=== PATIENT | female | born 1995 | race African-American/Black ===

== ENCOUNTER → 2024-02-17 12:10 | Outpatient (CLI) | payer OTHER, SELFPAY ==
[2024-02-17 13:16] LABS: Add Manual Diff / Slide Review NO; Basophils Absolute Auto 0 /uL (0-100); Basophils Percent Auto 0.3 % (0-2); Eosinophils Absolute Auto 300 /uL (0-450); Eosinophils Percent Auto 2.8 % (2-4); Hematocrit 37.2 % (36-46); Hemoglobin 12.8 g/dL (12.0-16.0); Lymphocytes Absolute Auto 2500 /uL (1100-4500); Lymphocytes Percent Auto 23.7 % (25-40); Mean Corpuscular HGB Conc 34.3 % (30-36); Mean Corpuscular Hemoglobin 31.1 PG (26-34); Mean Corpuscular Volume 90.6 fL (80-100); Monocytes Absolute Auto 700 /uL (0-900); Monocytes Percent Auto 6.5 % (3-14); Neutrophils Absolute Auto 7000 /uL (1500-7000); Neutrophils Percent Auto 66.7 % (50-75); Platelet Count 297 X10^3/uL (150-400); Red Blood Cell Count 4.11 X10^6/uL (4.0-5.2); Red Cell Distribution Width 13.5 % (11.6-14.8); White Blood Cell Count 10.5 X10^3/uL (4.5-11.0)
[2024-02-17 13:33] LABS: Natera Collection Specimen Collected
[2024-02-17 13:53] LABS: Hemoglobin A1C% w Est Avg Glu 4.8 % (4.0-6.0)
[2024-02-18 04:51] LABS: RPR Screen Non Reactive (Non Reactive)
[2024-02-18 08:15] LABS: Varicella IgG Antibody <135 index (Immune >165)
[2024-02-20 15:30] LABS: Hepatitis B Surface Antigen NEGATIVE s/c (NEGATIVE); Rubella Antibody IgG 10.4 IU/mL (>15)
[2024-02-20 15:46] LABS: HIV 1 & 2 Ab/Ag 4th Gen Combo NEGATIVE (NEGATIVE); Hep C Virus Ab w/Reflex Quant NEGATIVE s/c (NEGATIVE)
[2024-02-21 13:15] LABS: QuantiFERON Mitogen Value >10.00 IU/mL (.); QuantiFERON Nil Value 0.06 IU/mL (.); QuantiFERON TB Gold Plus Negative (Negative); QuantiFERON TB1 Ag Value 0.06 IU/mL (.); QuantiFERON TB2 Ag Value 0.03 IU/mL (.)
== END ==
PROVIDERS: Referring Provider Obstetrics & Gynecology; Visit Provider Obstetrics & Gynecology
DX: Z34.02 Encounter for supervision of normal first pregnancy, second trimester (principal); Z22.7 Latent tuberculosis
CPT/HCPCS: 36415; 80055; 83036; 86480; 86787; 86803; 86850; 86900; 86901; 87389

== ENCOUNTER → 2024-04-11 09:15 | Outpatient (CLI) | payer OTHER, SELFPAY | PROVIDERS: Visit Provider Obstetrics & Gynecology | DX: R31.9 Hematuria, unspecified (principal) | CPT/HCPCS: 87086 ==

== ENCOUNTER → 2024-04-11 09:41 | Outpatient (CLI) | payer OTHER, SELFPAY ==
[2024-04-19 11:11] LABS: Gest Age on Col Date 18.7 weeks (.); Gestational Age EDD (.); Insulin Dep Diabetes No (.); OSBR Risk 1IN 10000 (.); Results Report (.); Test Results *Screen Negative* (.)
== END ==
PROVIDERS: Referring Provider Obstetrics & Gynecology; Visit Provider Obstetrics & Gynecology
DX: O99.891 Other specified diseases and conditions complicating pregnancy (principal); R31.9 Hematuria, unspecified
CPT/HCPCS: 36415; 82105; 87086

== ENCOUNTER → 2024-04-19 15:19 | Outpatient (CLI) | payer OTHER, SELFPAY ==
--- NOTE | 2024-04-19 15:20 | DI.US.S_ITS ---
PROCEDURE: US OB >= 14 WEEKS FETUS INDICATIONS: anatomy scan OUTSIDE/PRIOR DATING DATA: Last menstrual period (LMP): December 02, 2023. LMP-based estimated date of delivery (ARABELLA): September 07, 2024. The calculations are made using the sonographic ARABELLA of August 31, 2024 TECHNIQUE: Real-time scanning was performed of the fetus, with image documentation and biometric measurements. Endovaginal scanning: Not performed COMPARISON: None. FINDINGS: General: A single living intrauterine gestation is present. Presentation: Variable Placenta: Placental position is posterior , without previa. Amniotic fluid index: 16.0 cm, normal range is 5-24 cm. Single deepest vertical pocket is 5.8 cm. heart rate: 150 beats per minute. Maternal cervical canal: 4.3 cm long. Normal lower limit is 2.5 cm. Report any funneling of internal cervical os: % of canal length, shape (U or V), width or any U-shaped funneling. biometrics: Biparietal diameter: 5.0 cm, 21 weeks and 0 days Head circumference: 18.3 cm, 20 weeks and 5 days Abdominal circumference: 16.1 cm, 21 weeks and 1 day Femur length: 3.4 cm, 20 weeks and 5 days Clinically estimated gestational age: 19 weeks and 6 days Composite gestational age from present scan: 20 weeks and 6 a days Estimated weight and percentile: 386 g, approximately the 95th percentile for gestational age Anatomic survey: Neuro: Ventricles are non-dilated at less than 10 mm. Cisterna magna is normal at 3-11 mm. Cerebellum is normal in size and morphology. Nuchal skin fold: Nuchal skin full not well visualized secondary to positioning. Face: Nose and lips, facial profile are normal. Spine: spine not well visualized secondary to positioning Heart: Cardiac structures not well visualized secondary to positioning. Diaphragm: Diaphragm is intact. Stomach: Left-sided stomach is present. Kidneys: No hydronephrosis. Normal is less than 5 mm in 2nd trimester, less than 7 mm in 3rd trimester. Cord: 3-vessel cord has orthotopic insertion. Bladder: Normal in size. Extremities: All 4 extremities identified. IMPRESSION: Single living intrauterine gestation with estimated sonographic gestational age of approximately 20 weeks and 6 days versus approximately 19 weeks and 6 days based off last menstrual period. Normal interval growth has occurred. Estimated weight of approximately 386 g which correlates with the 95th percentile for gestational age. The spine, cardiac structures, and nuchal skin fold were not well visualized secondary to positioning during this examination. Follow-up recommended. We strive to produce accurate, complete, and clear reports of imaging services. To assist us in improving patient care, this report was composed using standard report templates and voice recognition software. Therefore, it may contain abnormal punctuation, insertions and/or omissions. Occasional wrong-word or sound-alike substitutions may occur. Though we review the report and make efforts to correct it, we do recommend that the report be read carefully in proper context to recognize any text inaccuracies. Dictated by: Wander Brennan M.D. on 04/19/2024 at 19:56 Approved by: Wander Brennan M.D. on 04/19/2024 at 20:01
== END ==
PROVIDERS: Referring Provider Obstetrics & Gynecology; Visit Provider Obstetrics & Gynecology
DX: Z34.82 Encounter for supervision of other normal pregnancy, second trimester (principal); Z3A.20 20 weeks gestation of pregnancy
CPT/HCPCS: 76811

== ENCOUNTER → 2024-05-16 16:49 | Outpatient (CLI) | payer OTHER, SELFPAY ==
--- NOTE | 2024-05-16 16:50 | DI.US.S_ITS ---
PROCEDURE: US OB FOLLOW UP INDICATIONS: incomplete views at time of anatomy scan OUTSIDE/PRIOR DATING DATA: Last menstrual period (LMP): 12/02/23. LMP-based estimated date of delivery (ARABELLA): 09/07/24. First dating scan (date and location): Not available. Estimated date of delivery (ARABELLA) from first dating scan: Not available. The calculations are made using the working ARABELLA of 08/31/24. TECHNIQUE: Real-time scanning was performed of the fetus, with image documentation. Endovaginal scanning: Not performed COMPARISON: None. FINDINGS: A single living intrauterine gestation is present. Presentation: Vertex. Placenta: Placental position is posterior, without previa. Amniotic fluid index: 16.3 cm, normal range is 5-24 cm. Single deepest vertical pocket is 4.4 cm. heart rate: 147 beats per minute. Maternal cervical canal: Closed and 5.8 cm long. Normal lower limit is 2.5 cm. Clinically estimated gestational age: 23 weeks five days There was visualization of normal spine components, skin covering spine, four chambered heart, and cardiac ventricular outflow tracts. Nuchal fold thickness is not a valid measurement after 21 weeks. IMPRESSION: Single living intrauterine . Completion of anatomic survey with normal structures visualized. Dictated by: Stefanie Epps M.D. on 05/17/2024 at 12:03 Approved by: Stefanie Epps M.D. on 05/17/2024 at 12:07
== END ==
PROVIDERS: Referring Provider Obstetrics & Gynecology; Visit Provider Obstetrics & Gynecology
DX: Z34.82 Encounter for supervision of other normal pregnancy, second trimester (principal); Z3A.23 23 weeks gestation of pregnancy
CPT/HCPCS: 76816

== ENCOUNTER → 2024-06-06 13:16 | Outpatient (CLI) | payer OTHER, SELFPAY ==
[2024-06-06 15:34] LABS: Hematocrit 32.4 % (36-46); Hemoglobin 10.8 g/dL (12.0-16.0)
[2024-06-06 16:15] LABS: GTT (PREG) 1 Hour PP 50gm Dose 139 mg/dL (76-139)
== END ==
PROVIDERS: Referring Provider Obstetrics & Gynecology; Visit Provider Obstetrics & Gynecology
DX: Z34.82 Encounter for supervision of other normal pregnancy, second trimester (principal)
CPT/HCPCS: 36415; 82950; 85014; 85018

== ENCOUNTER → 2024-07-06 11:22 | Outpatient (CLI) | payer OTHER, SELFPAY ==
[2024-07-06 12:04] LABS: Add Manual Diff / Slide Review NO; Basophils Absolute Auto 0 /uL (0-100); Basophils Percent Auto 0.3 % (0-2); Eosinophils Absolute Auto 300 /uL (0-450); Eosinophils Percent Auto 2.6 % (2-4); Hematocrit 33.3 % (36-46); Hemoglobin 11.3 g/dL (12.0-16.0); Lymphocytes Absolute Auto 2200 /uL (1100-4500); Lymphocytes Percent Auto 18.5 % (25-40); Mean Corpuscular HGB Conc 33.9 % (30-36); Mean Corpuscular Volume 91.4 fL (80-100); Monocytes Absolute Auto 1000 /uL (0-900); Monocytes Percent Auto 8.7 % (3-14); Neutrophils Absolute Auto 8300 /uL (1500-7000); Neutrophils Percent Auto 69.9 % (50-75); Platelet Count 204 X10^3/uL (150-400); Red Blood Cell Count 3.64 X10^6/uL (4.0-5.2); Red Cell Distribution Width 13.9 % (11.6-14.8); White Blood Cell Count 11.8 X10^3/uL (4.5-11.0)
[2024-07-06 12:18] LABS: Hemoglobin A1C% w Est Avg Glu 4.7 % (4.0-6.0)
[2024-07-06 12:33] LABS: Alanine Aminotransferase 22 IU/L (<35); Albumin 3.4 g/dL (3.5-5.0); Albumin Globulin Ratio 1.2 (1.0-2.8); Alkaline Phosphatase 83 U/L (38-126); Aspartate Aminotransferase 24 IU/L (14-36); Bilirubin Total 0.5 mg/dL (0.2-1.3); Calcium 8.5 mg/dL (8.4-10.2); Carbon Dioxide 18 mmol/L (22-32); Chloride 109 mmol/L (98-107); Estimated Glomerular Filt Rate > 60 mL/min (>60); Globulin 2.8 g/dL (1.7-4.1); Glucose 62 mg/dL (70-100); HEMOLYSIS 17 (0-50); Potassium 3.9 mmol/L (3.4-5.1); Sodium 134 mmol/L (137-145); Total Protein 6.2 g/dL (6.3-8.2)
[2024-07-06 12:37] LABS: BUN Creatinine Ratio 4.8 (6-22); Blood Urea Nitrogen 2 mg/dL (7-17)
== END ==
PROVIDERS: Referring Provider Obstetrics & Gynecology; Visit Provider Obstetrics & Gynecology
DX: O36.60X0 Maternal care for excessive fetal growth, unspecified trimester, not applicable or unspecified (principal)
CPT/HCPCS: 36415; 80053; 83036; 85025

== ENCOUNTER → 2024-07-12 06:46 | Outpatient (CLI) | payer OTHER, SELFPAY ==
--- NOTE | 2024-07-12 06:47 | DI.US.S_ITS ---
PROCEDURE: US OB LIMITED INDICATIONS: interval growth, size > dates, borderline high 1h OGTT OUTSIDE/PRIOR DATING DATA: Last menstrual period (LMP): 12/02/2023. LMP-based estimated date of delivery (ARABELLA): 09/07/2024. The calculations are made using the clinical ARABELLA of 09/07/2024. TECHNIQUE: Real-time scanning was performed of the fetus, with biometry and image documentation. Endovaginal scanning: Not performed COMPARISON: [facility], OB FOLLOW UP, 05/16/2024, 17:07. FINDINGS: A single living intrauterine gestation is present. Presentation: Vertex. Placenta: Placental position is posterior, without previa. Amniotic fluid index: 11.5 cm, normal range is 5-24 cm. Single deepest vertical pocket is 3.9 cm. heart rate: 139 beats per minute. Maternal cervical canal: 5.4 cm long. Normal lower limit is 2.5 cm. Biometric measurements: BPD: 8.4 cm, 33 weeks 5 days HC: 30.5 cm, 33 weeks 6 days AC: 28.0 cm, 32 weeks 0 days FL: 6.4 cm, 33 weeks 0 days Clinically estimated gestational age: 31 weeks 6 days Estimated gestational age from today: 33 weeks 1 day. Estimated weight 2014 g, 64th percentile Stomach/abdomen, kidneys, cord insertion are thin normal limits. The urinary bladder is not well seen. IMPRESSION: 1. Springer living intrauterine at 33 weeks 1 day based on today's ultrasound. This is concordant with prior dating +/-3 weeks. Fetus is in the 64th percentile for weight. Estimated weight 2014 g. 2. Normal placenta and amniotic fluid. Dictated by: Michael Shaw M.D. on 07/12/2024 at 22:21 Approved by: Michael Shaw M.D. on 07/12/2024 at 22:29
== END ==
PROVIDERS: Referring Provider Obstetrics & Gynecology; Visit Provider Obstetrics & Gynecology
DX: O36.63X0 Maternal care for excessive fetal growth, third trimester, not applicable or unspecified (principal); Z3A.33 33 weeks gestation of pregnancy
CPT/HCPCS: 76815

== ENCOUNTER 2024-07-24 16:00 | Outpatient (CLI) | payer OTHER, SELFPAY ==
[2024-07-24 16:59] LABS: Alanine Aminotransferase 17 IU/L (<35); Albumin 3.9 g/dL (3.5-5.0); Albumin Globulin Ratio 1.2 (1.0-2.8); Alkaline Phosphatase 98 U/L (38-126); Aspartate Aminotransferase 27 IU/L (14-36); BUN Creatinine Ratio 9.5 (6-22); Bilirubin Total 0.4 mg/dL (0.2-1.3); Blood Urea Nitrogen 4 mg/dL (7-17); Calcium 9.2 mg/dL (8.4-10.2); Carbon Dioxide 17 mmol/L (22-32); Chloride 109 mmol/L (98-107); Estimated Glomerular Filt Rate > 60 mL/min (>60); Globulin 3.2 g/dL (1.7-4.1); Glucose 71 mg/dL (70-100); HEMOLYSIS < 15 (0-50); Potassium 3.9 mmol/L (3.4-5.1); Sodium 135 mmol/L (137-145); Total Protein 7.1 g/dL (6.3-8.2)
[2024-07-24 17:06] LABS: Add Manual Diff / Slide Review NO; Basophils Absolute Auto 0 /uL (0-100); Basophils Percent Auto 0.2 % (0-2); Eosinophils Absolute Auto 300 /uL (0-450); Eosinophils Percent Auto 2.5 % (2-4); Hematocrit 34.2 % (36-46); Hemoglobin 11.5 g/dL (12.0-16.0); Lymphocytes Absolute Auto 2400 /uL (1100-4500); Lymphocytes Percent Auto 20.9 % (25-40); Mean Corpuscular HGB Conc 33.6 % (30-36); Mean Corpuscular Hemoglobin 30.9 PG (26-34); Mean Corpuscular Volume 91.9 fL (80-100); Monocytes Absolute Auto 1200 /uL (0-900); Monocytes Percent Auto 10.1 % (3-14); Neutrophils Absolute Auto 7700 /uL (1500-7000); Neutrophils Percent Auto 66.3 % (50-75); Platelet Count 205 X10^3/uL (150-400); Red Blood Cell Count 3.73 X10^6/uL (4.0-5.2); Red Cell Distribution Width 14.1 % (11.6-14.8); White Blood Cell Count 11.7 X10^3/uL (4.5-11.0)
[2024-07-24 17:12] LABS: Creatinine Urine Random 24.17 mg/dL; Protein (Total) Urine Random 22 mg/dL (0-12); Protein Creatinine Ratio Urine 0.91 GRAM/24H
--- NOTE | 2024-07-24 17:24 | PM.OBTRLD ---
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 Surgical History [place] teeth extracted Hx of tonsillectomy Family History (Updated 02/13/24 @ 08:10 by Cara Zambrano RN) Mother Diabetes mellitus Hypertension Grandmother Diabetes mellitus Hypertension Grandmother Heart disease Hyperthyroidism Heart attack Social History marital status: number of children: 1 household members: spouse and children lives independently: Yes caregiver/support person: Yes housing: apartment pets and animals: No education level: college (Bachelor's degree) 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 jasper needs: No travel history: recent ([place]) seatbelt use: always helmet use: No water heater temp set < 120 deg: Yes working smoke detector in home: Yes fire extinguisher in home: Yes carbon monox detector in home: Yes firearms in home: No do you feel safe at home: Yes Smoking Status: Never smoker second hand exposure: No alcohol intake: former (~3-4/week on weekends when not ) during the past year weight has: remained stable well-balanced diet: daily or most days daily servings fruits/ve or more times/day caffeine: Yes (occasional AM coffee) Type(s) of exercise: walking frequency: 5-6 times per week duration: 30-45 minutes/day Review of Systems Review of Systems ROS: Yes All systems reviewed with the patient and are negative except as otherwise documented Objective Labs 07/24/24 16:20 07/24/24 16:20 Labs: Laboratory Results - last 24 hr 07/24/24 07/24/24 16:10 16:20 WBC 11.7 H RBC 3.73 L Hgb 11.5 L Hct 34.2 L MCV 91.9 MCH 30.9 MCHC 33.6 RDW 14.1 Plt Count 205 Neut % (Auto) 66.3 Lymph % (Auto) 20.9 L [place] % (Auto) 10.1 Eos % (Auto) 2.5 Baso % (Auto) 0.2 Neut # (Auto) 7700 H Lymph # (Auto) 2400 [place] # (Auto) 1200 H Eos # (Auto) 300 Baso # (Auto) 0 Sodium 135 L Potassium 3.9 Chloride 109 H Carbon Dioxide 17 L BUN 4 L Creatinine 0.42 L Estimated GFR > 60 BUN/Creatinine Ratio 9.5 Glucose 71 Calcium 9.2 Total Bilirubin 0.4 AST 27 ALT 17 Alkaline Phosphatase 98 Total Protein 7.1 Albumin 3.9 Globulin 3.2 Albumin/Globulin Ratio 1.2 U Random Total Protein 22 H Urine Creatinine 24.17 Protein/Creatinin Ratio 0.91 Evaluation Evaluation Baseline heart rate: 125 Variability: Moderate (11-25) monitor accelerations: Present Monitor Decelerations: Absent Category of Tracing: Reactive Status: Category l Diagnosis, Plan/Disposition Plan/Disposition Plan: 29yo at 33w4d sent to L&D after new mild range BP noted at time of routine PNC Non-sustained mild range BP repeat PIH labs wnl, Pr/Cr did not result until pt had been cleared for discharge however noted new increase to 0.91 (previously 0.16) message sent to staff to notify patient of need for 24h urine collection, pending and will follow RTC 1wk as scheduled routine PNC OB Disposition: home
== END 2024-07-24 17:10 | disposition home or self-care (01) ==
LOC: OB 07-30 06:35
PROVIDERS: Referring Provider Obstetrics & Gynecology; Visit Provider Obstetrics & Gynecology
DX: O26.893 Other specified pregnancy related conditions, third trimester (principal); R03.0 Elevated blood-pressure reading, without diagnosis of hypertension; Z3A.33 33 weeks gestation of pregnancy
CPT/HCPCS: 59025; 80053; 82570; 84156; 85025; G0378; G0379

== ENCOUNTER → 2024-07-27 07:51 | Outpatient (CLI) | payer OTHER, SELFPAY ==
[2024-07-27 08:47] LABS: Collection Time Urine 24 Hours; Protein (Total) Urine Random 17 mg/dL (0-12); Total Protein 24 Hour Urine 570 mg/day (42-225); Total Volume Urine 3350 mL
== END ==
PROVIDERS: Referring Provider Obstetrics & Gynecology; Visit Provider Obstetrics & Gynecology
DX: R77.9 Abnormality of plasma protein, unspecified (principal); R79.89 Other specified abnormal findings of blood chemistry; Z34.90 Encounter for supervision of normal pregnancy, unspecified, unspecified trimester
CPT/HCPCS: 84156

== ENCOUNTER 2024-07-27 16:11 | Observation (INO) | payer OTHER, SELFPAY | END 2024-07-27 18:15 | disposition home or self-care (01) | LOC: LABOR 16:12 | PROVIDERS: Admitting Provider Obstetrics & Gynecology; Referring Provider Obstetrics & Gynecology; Visit Provider Obstetrics & Gynecology | DX: Z34.83 Encounter for supervision of other normal pregnancy, third trimester (principal); R77.9 Abnormality of plasma protein, unspecified; R79.89 Other specified abnormal findings of blood chemistry; Z3A.34 34 weeks gestation of pregnancy | CPT/HCPCS: 59025; 59050; 84156; G0378; G0379 ==

== ENCOUNTER 2024-08-10 13:40 | Observation (INO) | payer OTHER, SELFPAY ==
[2024-08-10 14:34] LABS: Add Manual Diff / Slide Review NO; Basophils Absolute Auto 0 /uL (0-100); Basophils Percent Auto 0.2 % (0-2); Eosinophils Absolute Auto 200 /uL (0-450); Eosinophils Percent Auto 1.3 % (2-4); Hematocrit 36.5 % (36-46); Hemoglobin 12.3 g/dL (12.0-16.0); Lymphocytes Absolute Auto 2100 /uL (1100-4500); Lymphocytes Percent Auto 16.9 % (25-40); Mean Corpuscular HGB Conc 33.6 % (30-36); Mean Corpuscular Hemoglobin 30.8 PG (26-34); Mean Corpuscular Volume 91.9 fL (80-100); Monocytes Absolute Auto 800 /uL (0-900); Monocytes Percent Auto 6.2 % (3-14); Neutrophils Absolute Auto 9200 /uL (1500-7000); Neutrophils Percent Auto 75.4 % (50-75); Platelet Count 194 X10^3/uL (150-400); Red Blood Cell Count 3.98 X10^6/uL (4.0-5.2); Red Cell Distribution Width 14.3 % (11.6-14.8); White Blood Cell Count 12.2 X10^3/uL (4.5-11.0)
[2024-08-10 14:38] LABS: Alanine Aminotransferase 21 IU/L (<35); Albumin 3.9 g/dL (3.5-5.0); Albumin Globulin Ratio 1.1 (1.0-2.8); Alkaline Phosphatase 122 U/L (38-126); Aspartate Aminotransferase 31 IU/L (14-36); BUN Creatinine Ratio 8.2 (6-22); Bilirubin Total 0.4 mg/dL (0.2-1.3); Blood Urea Nitrogen 4 mg/dL (7-17); Calcium 9.5 mg/dL (8.4-10.2); Carbon Dioxide 19 mmol/L (22-32); Chloride 107 mmol/L (98-107); Estimated Glomerular Filt Rate > 60 mL/min (>60); Globulin 3.5 g/dL (1.7-4.1); Glucose 146 mg/dL (70-100); HEMOLYSIS < 15 (0-50); Potassium 3.8 mmol/L (3.4-5.1); Sodium 136 mmol/L (137-145); Total Protein 7.4 g/dL (6.3-8.2)
[2024-08-10 14:52] LABS: Ur Creatinine Normal (Normal); Ur Specific Gravity Normal (Normal); Urine Cocaine Negative (Negative); Urine Tetrahydrocannabinol Negative (Negative); Urine pH Normal (Normal)
[2024-08-10 14:53] LABS: UR Morphine/Opiate cutoff 300 Negative (Negative); Urine Amphetamines Negative (Negative); Urine Barbiturates Negative (Negative); Urine Benzodiazepines Negative (Negative); Urine MDMA Negative (Negative); Urine Methadone Negative (Negative); Urine Methamphetamines Negative (Negative); Urine Oxycodone Negative (Negative); Urine Phencyclidine Negative (Negative); Urine Tricyclic Antidepressant Negative (Negative)
[2024-08-10 15:58] LABS: Strep Grp B PCR NEG for Grp B Strep
--- NOTE | 2024-08-10 17:13 | P.TNLD_ITS ---
Visit Information Visit Information Date of evaluation: 08/10/24 Primary OB Provider: Elizabeth Rucker On-call OB Provider: Rodo Ng Reason for Evaluation: Yes non-stress test and Yes other Comments/Additional reasons for admission: Hollie is a 29 yo , ARABELLA 09/07/2024 currently at 36+ 0 weeks gestational age presenting to the [facility] with marked blood pressure elevation on her routine OB visit earlier today. Initial blood pressure in the office today was 202/90 and a repeat blood pressure by the attending price accuracy supervisor, Dr. Elizabeth Rucker, was also elevated in the severe range at 180/95. Dip urine was not performed but patient previously has been found to have greater than 500 mg of protein on 24 hour urine collection therefore would meet the diagnosis of preeclampsia. Patient is sent to the Center for repeat labs and prolonged monitoring. Patient has pedal edema which resolves overnight with elevation. She has chronic intermittent headaches which are essentially unchanged from how they have been through the course of this . She denies visual changes, or right upper quadrant pain. She does not have facial edema. 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 Surgical History [place] teeth extracted Hx of tonsillectomy Family History (Updated 02/13/24 @ 08:10 by Cara Zambrano RN) Mother Diabetes mellitus Hypertension Grandmother Diabetes mellitus Hypertension Grandmother Heart disease Hyperthyroidism Heart attack Social History marital status: number of children: 1 household members: spouse and children lives independently: Yes caregiver/support person: Yes housing: apartment pets and animals: No education level: college (Bachelor's degree) 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 jasper needs: No travel history: recent ([place]) seatbelt use: always helmet use: No water heater temp set < 120 deg: Yes working smoke detector in home: Yes fire extinguisher in home: Yes carbon monox detector in home: Yes firearms in home: No do you feel safe at home: Yes Smoking Status: Never smoker second hand exposure: No alcohol intake: former (~3-4/week on weekends when not ) during the past year weight has: remained stable well-balanced diet: daily or most days daily servings fruits/ve or more times/day caffeine: Yes (occasional AM coffee) Type(s) of exercise: walking frequency: 5-6 times per week duration: 30-45 minutes/day Review of Systems Review of Systems Narrative: Problem-specific ROS positives included in HPI Exam Const General: cooperative and comfortable Nutritional Appearance: well nourished Orientation: alert and oriented x3 HENMT Head: normal to inspection, normocephalic and atraumatic Ears: hearing grossly normal bilaterally Teeth and gingiva: dentition normal Eyes General: appearance normal, both eyes and all related structures Conjunctivae: conjunctivae normal Sclera: sclerae normal EOM: EOM intact bilaterally Neck Neck: normal visual inspection Resp Effort & Inspection: normal respiratory effort and able to speak in complete sentences GI Inspection: normal to inspection Palpation: soft, no hepatosplenomegaly and No tender (No RLQ tenderness) External Female Exam: other (SVE deferred) Uterus Location (Fundal Height): 36 Presentation: vertex Skin General: no rashes or lesions noted Neuro General: patient alert, patient awake, patient oriented x3 and no focal motor deficits Cognition: normal cognition Speech: speech normal DTR's: Rt Patellar: 0 and Lt Patellar: 0 Extrem General: normal to inspection Right lower extremity: normal to inspection and edema Details: non-pitting and 1+ Left lower extremity: normal to inspection and edema Details: non-pitting and 1+ Psych Appearance: grossly normal Mental Status: mental status grossly normal Speech and Movement: speech and movement normal Mood: congruent mood Affect: normal affect Attitude: cooperative Thought Process: normal Thought Content: normal Judgment: judgment good Objective Labs 08/10/24 13:55 08/10/24 13:55 Labs: Laboratory Results - last 24 hr 08/10/24 08/10/24 08/10/24 13:45 13:55 14:05 WBC 12.2 H RBC 3.98 L Hgb 12.3 Hct 36.5 MCV 91.9 MCH 30.8 MCHC 33.6 RDW 14.3 Plt Count 194 Neut % (Auto) 75.4 H Lymph % (Auto) 16.9 L [place] % (Auto) 6.2 Eos % (Auto) 1.3 L Baso % (Auto) 0.2 Neut # (Auto) 9200 H Lymph # (Auto) 2100 [place] # (Auto) 800 Eos # (Auto) 200 Baso # (Auto) 0 Sodium 136 L Potassium 3.8 Chloride 107 Carbon Dioxide 19 L BUN 4 L Creatinine 0.49 L Estimated GFR > 60 BUN/Creatinine Ratio 8.2 Glucose 146 H Calcium 9.5 Total Bilirubin 0.4 AST 31 ALT 21 Alkaline Phosphatase 122 Total Protein 7.4 Albumin 3.9 Globulin 3.5 Albumin/Globulin Ratio 1.1 U Opiates 300ng/mL cut Negative Ur Oxycodone Screen Negative Urine Methadone Screen Negative Ur Barbiturates Screen Negative U Tricyclic Antidepress Negative Ur Phencyclidine Scrn Negative Ur Amphetamines Screen Negative U Methamphetamines Scrn Negative Ur MDMA Scrn (Ecstasy) Negative U Benzodiazepines Scrn Negative Urine Cocaine Screen Negative U Marijuana (THC) Screen Negative Urine pH Normal Urine Specific [place] Normal Ur Creatinine Normal Group B Strep (PCR) Neg for grp b strep Diagnosis, Plan/Disposition Final Diagnosis (1) Preeclampsia: Status: Acute (2) : Status: Acute Plan/Disposition Plan: We had an extended discussion about preeclampsia as well as evaluation and management of preeclampsia both with and without severe features. Her marked blood pressure elevation in the office is deeply concerning and that concern was expressed to the patient and her family. That said, with bedrest and close observation, her blood pressure has normalized and given the option of continued observation overnight or discharge to home with close observation at home, the patient would prefer the latter. Accordingly, will let the patient go home tonight with her assurance that she will remain at bedrest and check her blood pressures at least 4 times daily going forward with the intention of notifying her provider and/or the center if she has a blood pressure at the 150/90 range or higher. She understands that she needs to be closely observe it for a significant change in her headaches, visual changes, or right upper quadrant pain. In addition she will return on 08/13/2024 for nonstress test and repeat labs. She is also scheduled for follow-up ultrasound on 08/13/2024. We also discussed induction of labor at 37-38 weeks due to preeclampsia or sooner if she manifests severe features. OB Disposition: home
== END 2024-08-10 17:12 | disposition home or self-care (01) ==
PROVIDERS: Admitting Provider Obstetrics & Gynecology; Referring Provider Obstetrics & Gynecology; Visit Provider Obstetrics & Gynecology
DX: O14.03 Mild to moderate pre-eclampsia, third trimester (principal); Z3A.36 36 weeks gestation of pregnancy
CPT/HCPCS: 59025; 59050; 80053; 80305; 85025; 87653; G0378; G0379

== ENCOUNTER → 2024-08-13 07:03 | Outpatient (CLI) | payer OTHER, SELFPAY ==
--- NOTE | 2024-08-13 07:04 | DI.US.S_ITS ---
PROCEDURE: US OB LIMITED INDICATIONS: ASSESS GROWTH,BELEN OUTSIDE/PRIOR DATING DATA: Last menstrual period (LMP): 12/02/2023 LMP-based estimated date of delivery (ARABELLA): 09/07/2024 The calculations are made using the working ARABELLA of 182 TECHNIQUE: Real-time scanning was performed of the fetus, with image documentation and biometric measurements. Endovaginal scanning: Not performed COMPARISON: [facility], OB LIMITED, 07/12/2024, 7:09. FINDINGS: General: A single living intrauterine gestation is present. Presentation: Vertex Placenta: Placental position is posterior fundal, without previa. Amniotic fluid index: 9.4 cm, normal range is 5-24 cm. Single deepest vertical pocket is 2.7 cm. heart rate: 144 beats per minute. Maternal cervical canal: Not well seen. biometrics: Biparietal diameter: 9.2 cm, 37 weeks, 1 day. Head circumference: 33.0 cm, 37 weeks, 3 days. Abdominal circumference: 31.7 cm, 37 weeks, 5 days. Femur length: 7.4 cm, 37 weeks, 5 days. Clinically estimated gestational age: 36 weeks, 3 days. Composite gestational age from present scan: 37 weeks, 0 day. Estimated weight and percentile: 2970 g, 57% IMPRESSION: 1. Single live intrauterine gestation with fetus in vertex presentation. heart rate is 144 beats per minute. Normal BELEN at at 9.4 cm. 2. Estimated weight is at 57% and is within normal limits. We strive to produce accurate, complete, and clear reports of imaging services. To assist us in improving patient care, this report was composed using standard report templates and voice recognition software. Therefore, it may contain abnormal punctuation, insertions and/or omissions. Occasional wrong-word or sound-alike substitutions may occur. Though we review the report and make efforts to correct it, we do recommend that the report be read carefully in proper context to recognize any text inaccuracies. Dictated by: Nain Marte M.D. on 08/13/2024 at 14:22 Approved by: Nain Marte M.D. on 08/13/2024 at 14:26
== END ==
LOC: US 07:04
PROVIDERS: Referring Provider Obstetrics & Gynecology; Visit Provider Obstetrics & Gynecology
DX: O36.63X0 Maternal care for excessive fetal growth, third trimester, not applicable or unspecified (principal); Z3A.37 37 weeks gestation of pregnancy
CPT/HCPCS: 76815

== ENCOUNTER 2024-08-13 08:05 | Observation (INO) | payer OTHER, SELFPAY ==
[2024-08-13 09:07] LABS: Add Manual Diff / Slide Review NO; Basophils Absolute Auto 0 /uL (0-100); Basophils Percent Auto 0.1 % (0-2); Eosinophils Absolute Auto 100 /uL (0-450); Eosinophils Percent Auto 1.2 % (2-4); Hematocrit 33.7 % (36-46); Hemoglobin 11.6 g/dL (12.0-16.0); Lymphocytes Absolute Auto 1800 /uL (1100-4500); Lymphocytes Percent Auto 17.1 % (25-40); Mean Corpuscular HGB Conc 34.4 % (30-36); Mean Corpuscular Hemoglobin 31.1 PG (26-34); Mean Corpuscular Volume 90.2 fL (80-100); Monocytes Absolute Auto 900 /uL (0-900); Monocytes Percent Auto 8.3 % (3-14); Neutrophils Absolute Auto 7600 /uL (1500-7000); Neutrophils Percent Auto 73.3 % (50-75); Platelet Count 181 X10^3/uL (150-400); Red Blood Cell Count 3.73 X10^6/uL (4.0-5.2); Red Cell Distribution Width 14.3 % (11.6-14.8); White Blood Cell Count 10.4 X10^3/uL (4.5-11.0)
[2024-08-13 09:15] LABS: Alanine Aminotransferase 20 IU/L (<35); Albumin 3.5 g/dL (3.5-5.0); Albumin Globulin Ratio 1.1 (1.0-2.8); Alkaline Phosphatase 107 U/L (38-126); Aspartate Aminotransferase 20 IU/L (14-36); Bilirubin Total 0.5 mg/dL (0.2-1.3); Carbon Dioxide 20 mmol/L (22-32); Chloride 107 mmol/L (98-107); Estimated Glomerular Filt Rate > 60 mL/min (>60); Globulin 3.1 g/dL (1.7-4.1); Glucose 101 mg/dL (70-100); HEMOLYSIS < 15 (0-50); Potassium 3.9 mmol/L (3.4-5.1); Sodium 134 mmol/L (137-145); Total Protein 6.6 g/dL (6.3-8.2)
[2024-08-13 09:17] LABS: Blood Urea Nitrogen 2 mg/dL (7-17)
--- NOTE | 2024-08-13 09:26 | P.TNLD_ITS ---
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 Surgical History [place] teeth extracted Hx of tonsillectomy Family History (Updated 02/13/24 @ 08:10 by Cara Zambrano RN) Mother Diabetes mellitus Hypertension Grandmother Diabetes mellitus Hypertension Grandmother Heart disease Hyperthyroidism Heart attack Social History marital status: number of children: 1 household members: spouse and children lives independently: Yes caregiver/support person: Yes housing: apartment pets and animals: No education level: college (Bachelor's degree) 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 jasper needs: No travel history: recent ([facility]) seatbelt use: always helmet use: No water heater temp set < 120 deg: Yes working smoke detector in home: Yes fire extinguisher in home: Yes carbon monox detector in home: Yes firearms in home: No do you feel safe at home: Yes Smoking Status: Never smoker second hand exposure: No alcohol intake: former (~3-4/week on weekends when not ) during the past year weight has: remained stable well-balanced diet: daily or most days daily servings fruits/ve or more times/day caffeine: Yes (occasional AM coffee) Type(s) of exercise: walking frequency: 5-6 times per week duration: 30-45 minutes/day Review of Systems Review of Systems ROS: Yes All systems reviewed with the patient and are negative except as otherwise documented Constitutional Constitutional: Reports headache(s) (chronic, unchanged from prior ) ENT Ears, Nose, Mouth, and Throat: Yes headache(s) (chronic, unchanged from prior ) Neurologic Neurologic: Reports headache(s) (chronic, unchanged from prior ) Exam Const General: cooperative, comfortable, well developed and other (no facial edema) Nutritional Appearance: overweight Orientation: alert, awake and oriented x3 Limitations: mental status not altered [facility] Head: normal to inspection Eyes General: appearance normal, both eyes and all related structures Neck Neck: normal visual inspection Resp Effort & Inspection: normal respiratory effort Cardio Pulses: normal peripheral pulses GI Inspection: striae Other: gravid, size c/w dates Skin General: no rashes or lesions noted Neuro General: patient alert, patient awake and patient oriented x3 Extrem General: normal to inspection Other: trace pedal edema Psych Mental Status: mental status grossly normal Judgment: judgment good Objective Labs 08/13/24 08:45 08/13/24 08:45 Labs: Laboratory Results - last 24 hr 08/13/24 08:45 WBC 10.4 RBC 3.73 L Hgb 11.6 L Hct 33.7 L MCV 90.2 MCH 31.1 MCHC 34.4 RDW 14.3 Plt Count 181 Neut % (Auto) 73.3 Lymph % (Auto) 17.1 L [place] % (Auto) 8.3 Eos % (Auto) 1.2 L Baso % (Auto) 0.1 Neut # (Auto) 7600 H Lymph # (Auto) 1800 [place] # (Auto) 900 Eos # (Auto) 100 Baso # (Auto) 0 Sodium 134 L Potassium 3.9 Chloride 107 Carbon Dioxide 20 L BUN 2 L Creatinine 0.40 L Estimated GFR > 60 BUN/Creatinine Ratio 5.0 L Glucose 101 H Calcium 9.0 Total Bilirubin 0.5 AST 20 ALT 20 Alkaline Phosphatase 107 Total Protein 6.6 Albumin 3.5 Globulin 3.1 Albumin/Globulin Ratio 1.1 Evaluation Evaluation Baseline heart rate: 130 Variability: Moderate (11-25) monitor accelerations: Present Monitor Decelerations: Absent Contraction Frequency (minutes): 10 Uterine Contraction Intensity: Mild Category of Tracing: Reactive Status: Category l Diagnosis, Plan/Disposition Final Diagnosis (1) Preeclampsia: Status: Acute Plan/Disposition Plan: 29yo at 36w3d D=10wk US with prior diagnosis of preE without severe features presents for interval NST/labs Reactive Cat 1 tracing Maternal VSS without antihypertensive therapy, no exacerbation/change in chronic SANDERSON profile repeat CBC, CMP without significant change or abnormality scheduled for admission/cervical ripening 08/16 with planned IOL 08/17/24 at 37w0d per ACOG guidelines strict interval precautions, plan for repeat NST 08/15 following routine PNC office appointment OB Disposition: home
== END 2024-08-13 09:40 | disposition home or self-care (01) ==
PROVIDERS: Admitting Provider Obstetrics & Gynecology; Referring Provider Obstetrics & Gynecology; Visit Provider Obstetrics & Gynecology
DX: O14.03 Mild to moderate pre-eclampsia, third trimester (principal); O36.60X0 Maternal care for excessive fetal growth, unspecified trimester, not applicable or unspecified; Z3A.36 36 weeks gestation of pregnancy
CPT/HCPCS: 59025; 76815; 80053; 84112; 85025; G0378; G0379

== ENCOUNTER 2024-08-15 09:34 | Outpatient (CLI) | payer OTHER, SELFPAY ==
[2024-08-15] MEDS: BUTALB/APAP/CAFFEINE 50/325/40 TABLET 1 EACH PO (10:11)
[2024-08-15 10:15] LABS: Add Manual Diff / Slide Review NO; Basophils Absolute Auto 0 /uL (0-100); Basophils Percent Auto 0.1 % (0-2); Eosinophils Absolute Auto 100 /uL (0-450); Eosinophils Percent Auto 1.3 % (2-4); Hematocrit 33.1 % (36-46); Hemoglobin 11.2 g/dL (12.0-16.0); Lymphocytes Absolute Auto 2100 /uL (1100-4500); Mean Corpuscular HGB Conc 33.9 % (30-36); Mean Corpuscular Hemoglobin 30.7 PG (26-34); Mean Corpuscular Volume 90.4 fL (80-100); Monocytes Absolute Auto 700 /uL (0-900); Monocytes Percent Auto 6.5 % (3-14); Neutrophils Absolute Auto 8100 /uL (1500-7000); Neutrophils Percent Auto 73.1 % (50-75); Platelet Count 191 X10^3/uL (150-400); Red Blood Cell Count 3.66 X10^6/uL (4.0-5.2); Red Cell Distribution Width 13.9 % (11.6-14.8)
[2024-08-15 10:22] LABS: Alanine Aminotransferase 17 IU/L (<35); Albumin 3.2 g/dL (3.5-5.0); Alkaline Phosphatase 108 U/L (38-126); Aspartate Aminotransferase 29 IU/L (14-36); BUN Creatinine Ratio 8.3 (6-22); Bilirubin Total 0.4 mg/dL (0.2-1.3); Blood Urea Nitrogen 3 mg/dL (7-17); Calcium 8.8 mg/dL (8.4-10.2); Carbon Dioxide 19 mmol/L (22-32); Chloride 106 mmol/L (98-107); Estimated Glomerular Filt Rate > 60 mL/min (>60); Globulin 3.3 g/dL (1.7-4.1); Glucose 109 mg/dL (70-100); HEMOLYSIS < 15 (0-50); Potassium 3.5 mmol/L (3.4-5.1); Sodium 131 mmol/L (137-145); Total Protein 6.5 g/dL (6.3-8.2)
--- NOTE | 2024-08-15 10:35 | P.TNLD_ITS ---
Visit Information Visit Information Date of evaluation: 08/15/24 On-call OB Provider: Elizabeth Rucker Reason for Evaluation: Yes non-stress test Comments/Additional reasons for admission: 29yo at 36w5d with known preE without severe features, interval NST with repeat [facility] labs Vital Signs Vital Signs: maternal VS reviewed in OBIX, normotensive without mild or severe range abnormality [facility] Medical History (Updated 08/10/24 @ 18:02 by Rodo Ng MD) Rib pain on left side Latent tuberculosis 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 Surgical History [place] teeth extracted Hx of tonsillectomy Family History (Updated 02/13/24 @ 08:10 by Cara Zambrano RN) Mother Diabetes mellitus Hypertension Grandmother Diabetes mellitus Hypertension Grandmother Heart disease Hyperthyroidism Heart attack Social History marital status: number of children: 1 household members: spouse and children lives independently: Yes caregiver/support person: Yes housing: apartment pets and animals: No education level: college (Bachelor's degree) 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 jasper needs: No travel history: recent ([place]) seatbelt use: always helmet use: No water heater temp set < 120 deg: Yes working smoke detector in home: Yes fire extinguisher in home: Yes carbon monox detector in home: Yes firearms in home: No do you feel safe at home: Yes Smoking Status: Never smoker second hand exposure: No alcohol intake: former (~3-4/week on weekends when not ) during the past year weight has: remained stable well-balanced diet: daily or most days daily servings fruits/ve or more times/day caffeine: Yes (occasional AM coffee) Type(s) of exercise: walking frequency: 5-6 times per week duration: 30-45 minutes/day Review of Systems Review of Systems Narrative: pt states persistent chronic SANDERSON, no change from prior ROS: Yes All systems reviewed with the patient and are negative except as otherwise documented Exam Vital Signs (past 8 hours): maternal VS reviewed per OBIX without abnormality Const General: cooperative, comfortable and No acute distress Nutritional Appearance: overweight Orientation: alert, awake and oriented x3 Limitations: mental status not altered HENMT Head: normal to inspection Eyes General: appearance normal, both eyes and all related structures Resp Effort & Inspection: normal respiratory effort GI Other: gravid, size c/w dates Other: deferred Skin General: no rashes or lesions noted Neuro General: patient alert, patient awake and patient oriented x3 Extrem General: normal to inspection Other: +1 pedal edema Psych Mental Status: mental status grossly normal Judgment: judgment good Objective Labs 08/15/24 09:55 08/15/24 09:55 Labs: Laboratory Results - last 24 hr 08/15/24 09:55 WBC 11.0 RBC 3.66 L Hgb 11.2 L Hct 33.1 L MCV 90.4 MCH 30.7 MCHC 33.9 RDW 13.9 Plt Count 191 Neut % (Auto) 73.1 Lymph % (Auto) 19.[address] [place] % (Auto) 6.5 Eos % (Auto) 1.3 L Baso % (Auto) 0.1 Neut # (Auto) 8100 H Lymph # (Auto) 2100 [place] # (Auto) 700 Eos # (Auto) 100 Baso # (Auto) 0 Sodium 131 L Potassium 3.5 Chloride 106 Carbon Dioxide 19 L BUN 3 L Creatinine 0.36 L Estimated GFR > 60 BUN/Creatinine Ratio 8.3 Glucose 109 H Calcium 8.8 Total Bilirubin 0.4 AST 29 ALT 17 Alkaline Phosphatase 108 Total Protein 6.5 Albumin 3.2 L Globulin 3.3 Albumin/Globulin Ratio 1.0 Evaluation Evaluation Baseline heart rate: 145 Variability: Average (6-10) monitor accelerations: Present Monitor Decelerations: Absent Uterine Contraction Intensity: Mild Category of Tracing: Reactive Status: Category l Diagnosis, Plan/Disposition Final Diagnosis (1) Preeclampsia: Status: Acute Plan/Disposition Plan: Interval PIH labs without abnormality Reactive Cat 1 tracing maternal VSS, noted chronic SANDERSON without change in profile strict precautions reviewed, plan for admission tomorrow evening (08/16) for overnight cervical ripening, IOL at 37w0d for preE without severe features OB Disposition: home
== END 2024-08-15 10:35 | disposition home or self-care (01) ==
LOC: LABOR 10:09 → OB 08-20 09:01
PROVIDERS: Referring Provider Obstetrics & Gynecology; Visit Provider Obstetrics & Gynecology
DX: O14.03 Mild to moderate pre-eclampsia, third trimester (principal); Z3A.37 37 weeks gestation of pregnancy
CPT/HCPCS: 59025; 80053; 85025; G0378; G0379

== ENCOUNTER 2024-08-16 19:23 | Inpatient (IN) | payer OTHER, SELFPAY ==
[2024-08-16 20:34] LABS: Add Manual Diff / Slide Review NO; Basophils Absolute Auto 0 /uL (0-100); Basophils Percent Auto 0.2 % (0-2); Eosinophils Absolute Auto 100 /uL (0-450); Eosinophils Percent Auto 1.3 % (2-4); Hematocrit 33.5 % (36-46); Hemoglobin 11.4 g/dL (12.0-16.0); Lymphocytes Absolute Auto 2100 /uL (1100-4500); Lymphocytes Percent Auto 18.9 % (25-40); Mean Corpuscular Volume 91.3 fL (80-100); Monocytes Absolute Auto 800 /uL (0-900); Monocytes Percent Auto 6.8 % (3-14); Neutrophils Absolute Auto 8100 /uL (1500-7000); Neutrophils Percent Auto 72.8 % (50-75); Platelet Count 211 X10^3/uL (150-400); Red Blood Cell Count 3.67 X10^6/uL (4.0-5.2); Red Cell Distribution Width 13.7 % (11.6-14.8); White Blood Cell Count 11.2 X10^3/uL (4.5-11.0)
[2024-08-16] MEDS: DINOPROSTONE VAG (CERVIDIL) 10 MG VAG (20:52)
[2024-08-16 21:17] VITALS: BP 148/75
[2024-08-17 00:06] LABS: Alanine Aminotransferase 16 IU/L (<35); Albumin 3.4 g/dL (3.5-5.0); Alkaline Phosphatase 119 U/L (38-126); Aspartate Aminotransferase 27 IU/L (14-36); Bilirubin Total 0.4 mg/dL (0.2-1.3); Blood Urea Nitrogen 3 mg/dL (7-17); Calcium 8.9 mg/dL (8.4-10.2); Carbon Dioxide 19 mmol/L (22-32); Chloride 107 mmol/L (98-107); Estimated Glomerular Filt Rate > 60 mL/min (>60); Globulin 3.4 g/dL (1.7-4.1); Glucose 113 mg/dL (70-100); HEMOLYSIS < 15 (0-50); Potassium 3.5 mmol/L (3.4-5.1); Sodium 133 mmol/L (137-145); Total Protein 6.8 g/dL (6.3-8.2)
--- NOTE | 2024-08-17 07:44 | PM.OBHP.1 ---
OB HPI Date/Time Date of admission: 08/16/24 Date Patient Seen: 08/17/24 Time Patient Seen: 07:44 History of Present Condition Chief complaint: IOL for preE without severe features : 2 Para: 1 Estimated Date of Delivery: 09/07/24 Estimated Gestational Age (weeks): 37w0d Narrative: Hollie Ng is a 29 year old female at 37w0d by early first trimester dating, admitted overnight for cervical ripening in setting of planned IOL today at early term secondary to pre-eclampsia without severe features. Patient states she is feeling well this AM, notes onset of contractions approximately 1h prior to interview. +FM, denies VB, LOF, dysuria. Cervidil removed this AM without significant interval cervical dilation however significant softening and pt amenable to membrane strip + initiation of pitocin for further augmentation. course has been significant for persistent chronic SANDERSON throughout with limited response to standard symptomatic management. Patient had first mild range BP in office at 33wga, PIH labs wnl aside from Pr/Cr and subsequent 24h UOP >500 ruling in for preE without severe features. Patient has had twice weekly NST with lab since diagnosis without further aberration, intermittent non-sustained mild range BP on office/triage assessment, persistent SANDERSON consistent with chronic and not associated with any visual changes. PNL as below. Indications Indication for induction OB: gestational HTN/pre-eclampsia History of Present care: good care Dating criteria: LMP confirmed by 1st trimester US Ultrasounds: normal mid trimester US Obstetrical complications: preeclampsia (without severe features ) Preadmission Labs Blood type: B (+) positive -: Antibody screen: negative, Cystic fibrosis screen: unknown, GBS status: negative, HBsAG: negative, HIV: negative, HSV 1: unknown, HSV 2: unknown and RPR/VDLR: negative -: Chlamydia screen: not detected and Gonorrhea screen: not detected -: Rubella: immune and Varicella: not immune HCT: 33.5 HCAB: negative Cell-free DNA: low-risk XY 1 hr GTT: 139 Prior (ies) History: (2014), 40.1wga, 7# Evaluation Evaluation Baseline heart rate: 140 Variability: Moderate (11-25) monitor accelerations: Present Monitor Decelerations: Episodic (early) Contraction Frequency (minutes): 4 Uterine Contraction Intensity: Moderate Category of Tracing: Reactive Status: Category l Dilation (cm): 2 Effacement (%): 40 Dilation: 1-2 cm Effacement: 40-50% station: -3 Position of cervix: mid Consistency: soft Sprague score: 5 PFSH Medical History (Updated 08/10/24 @ 18:02 by Rodo Ng MD) Rib pain on left side Latent tuberculosis 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 Surgical History [place] teeth extracted Hx of tonsillectomy Family History (Updated 02/13/24 @ 08:10 by Cara Zambrano RN) Mother Diabetes mellitus Hypertension Grandmother Diabetes mellitus Hypertension Grandmother Heart disease Hyperthyroidism Heart attack Social History marital status: number of children: 1 household members: spouse and children lives independently: Yes caregiver/support person: Yes housing: apartment pets and animals: No education level: college (Bachelor's degree) 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 jasper needs: No travel history: recent ([facility]) seatbelt use: always helmet use: No water heater temp set < 120 deg: Yes working smoke detector in home: Yes fire extinguisher in home: Yes carbon monox detector in home: Yes firearms in home: No do you feel safe at home: Yes Smoking Status: Never smoker second hand exposure: No alcohol intake: former (~3-4/week on weekends when not ) during the past year weight has: remained stable well-balanced diet: daily or most days daily servings fruits/ve or more times/day caffeine: Yes (occasional AM coffee) Type(s) of exercise: walking frequency: 5-6 times per week duration: 30-45 minutes/day Meds Home Medications and Allergies Home Medications Medication Instructions Recorded Confirmed Type ketoconazole 2 % shampoo 1 applic topical 3XW 02/13/24 08/10/24 History vitamin-ferrous sulfate tab PO 02/13/24 08/10/24 History 27 mg iron-folic acid 0.8 mg tablet magnesium oxide 500 mg capsule 500 mg PO BID #60 caps 03/16/24 08/10/24 Rx hydroxyzine HCl 25 mg tablet 25 mg PO BID PRN itching #20 tabs 04/23/24 08/10/24 Rx Allergies Allergy/AdvReac Type Severity Reaction Status Date / Time apple Allergy Intermediate Swelling Verified 08/10/24 13:22 of Lip/Tongue/Throat aguilar Allergy Intermediate Swelling Verified 08/10/24 13:22 of Lip/Tongue/Throat rifampin Allergy Intermediate Swelling Verified 08/10/24 13:22 of Lip/Tongue/Throat Review of Systems Review of Systems ROS: Yes All systems reviewed with the patient and are negative except as otherwise documented OB Exam Vital signs Blood Pressure: 142/78 Pulse Rate: 105 Respiratory Rate: 18 HENMT Head: normal to inspection Resp Effort & Inspection: normal respiratory effort Cardio Rate: tachycardic Extremities Lower extremity: Yes normal to inspection External Female Exam: Yes normal external appearance Speculum Exam - Vagina: Yes normal appearance of the vagina Presentation: vertex Objective Labs 08/16/24 19:56 08/16/24 19:56 Labs: Laboratory Results - last 24 hr 08/16/24 19:56 WBC 11.2 H RBC 3.67 L Hgb 11.4 L Hct 33.5 L MCV 91.3 MCH 31.0 MCHC 34.0 RDW 13.7 Plt Count 211 Neut % (Auto) 72.8 Lymph % (Auto) 18.9 L [place] % (Auto) 6.8 Eos % (Auto) 1.3 L Baso % (Auto) 0.2 Neut # (Auto) 8100 H Lymph # (Auto) 2100 [place] # (Auto) 800 Eos # (Auto) 100 Baso # (Auto) 0 Sodium 133 L Potassium 3.5 Chloride 107 Carbon Dioxide 19 L BUN 3 L Creatinine 0.43 L Estimated GFR > 60 BUN/Creatinine Ratio 7.0 Glucose 113 H Calcium 8.9 Total Bilirubin 0.4 AST 27 ALT 16 Alkaline Phosphatase 119 Total Protein 6.8 Albumin 3.4 L Globulin 3.4 Albumin/Globulin Ratio 1.0 Blood Type B Positive Antibody Screen Negative Assessment and Plan Assessment and Plan Assessment and Plan narrative: 29yo at 37w0d by first trimester US, admitted overnight for cervical ripening with planned IOL today at early term in setting of preE without severe features preE without severe features admission labs without aberration continue BP monitoring, intermittent non-sustained mild range without indication for treatment at this time low threshold to initiate magnesium gtt per protocol low threshold to start low-dose nifedipine pending clinical course given risk for pp exacerbation/readmission IOL s/p cervidil overnight with appreciable softening of cervix membranes stripped, pt amenable to pitocin augmentation continue CEFM, toco anticipate vaginal delivery GBS neg, remainder PNL as above Time-Based Coding :: [TOTAL MINUTES] spent with patient and on the chart (including review of chart, obtaining history, exam, reviewing outside data, placing orders, documenting exam and treatment plan, and counseling patient) on [DATE].
[2024-08-17] MEDS: LACTATED RINGERS 1,000 ML 100 ML IV (08:00)
[2024-08-17] MEDS: OXYTOCIN PREMIX 30 UNIT/500 ML PLAST..BAG IV (08:30)
[2024-08-17 17:01] VITALS: BP 142/78; PULSE 105; RESP 18
--- NOTE | 2024-08-17 18:48 | PM.OBPNLAB ---
Date/Time Date Patient Seen: 08/17/24 Time Patient Seen: 18:48 Pain Control Pain control: tolerating well Pelvic Exam Dilation (cm): 3 Effacement (%): 70 station: -3 Amniotic membrane status: Ruptured Comments: After informed consent, AROM performed with clear fluid present Contractions Monitor mode: External Pitocin rate (mU/min): 14 Contraction frequency (min): 3 Contraction intensity: Moderate Status status: Category l Heart Rate Baseline: 140 Monitor Accelerations: Present Monitor Decelerations: Absent Monitor Variability: Moderate Assessment and Plan Comments: 29yo at 37w0d here for IOL due to pre-eclampsia without severe features. GBS negative, Rh positive. Assumed care from Dr Rucker. Pt received cervidil overnight, then initiated on pitocin this morning. No significant cervical change throughout the day. Baby remains high in the pelvis, however on exam head was applied well to the cervix, which is also quite high and anterior. AROM performed with clear fluid present. Pt now feeling more painful contractions. - Continue pitocin, titrate as tolerated - FHT overall reassuring - Epidural for pain control when desired
[2024-08-18] MEDS: ACETAMINOPHEN 325 MG TABLET 650 MG PO ×2 (06:41→18:11)
[2024-08-18] MEDS: OXYTOCIN PREMIX 30 UNIT/500 ML PLAST..BAG IV (08:19)
[2024-08-18] MEDS: ONDANSETRON 4 MG/2 ML INJ IV ×2 (08:25→18:15)
--- NOTE | 2024-08-18 09:23 | PM.OBPNLAB ---
Date/Time Date Patient Seen: 08/18/24 Time Patient Seen: 09:23 Pain Control Pain control: tolerating well Pelvic Exam Dilation (cm): 4 Effacement (%): 70 station: -3 Amniotic membrane status: Ruptured Contractions Monitor mode: External Pitocin rate (mU/min): 20 Contraction frequency (min): 3 Contraction intensity: Moderate Intrauterine tone measurement: 150 Status status: Category l Heart Rate Baseline: 140 Monitor Accelerations: Absent Monitor Decelerations: Absent Monitor Variability: Moderate Assessment and Plan Comments: 29yo at 37w0d here for IOL due to pre-eclampsia without severe features. GBS negative, Rh positive. Assumed care from Dr Rucker. Pt received cervidil the first night, then initiated on pitocin. AROM performed last night with clear fluid. Now on pitocin for 24hrs, with brief break overnight. IUPC placed, MVUs not adequate. - Continue pitocin, titrate as tolerated to adequate MVUs. - FHT overall reassuring - Epidural for pain control when desired
[2024-08-18] MEDS: LACTATED RINGERS 1,000 ML 100 ML IV (12:33)
[2024-08-18] MEDS: ePHEDrine 50 MG/ML VIAL IV ×2 (13:27→13:31)
--- NOTE | 2024-08-18 15:31 | PM.AN.REGBLK ---
Regional Block Pre-procedure Procedure: Continuous Lumbar Epidural for L&D (with intrathecal injection) Attending OB provider: Roxanna Enamorado PMH/ROS narrative: 29yo in labor requesting epidural. See pre-anesthesia evaluation for more details. Pt was originally seen and consented on 08/17/24 about 10:20. Pt reevaluated today with no significant change and consent reviewed and re-signed prior to epidural placement since >24 hours old. ASA Class: II Labs: Hct 33.5 % (36-46) L 08/16/24 19:56 Plt Count 211 X10^3/uL (150-400) 08/16/24 19:56 Medications: Current Medications Generic Name Dose Route Start Last Admin Trade Name Freq PRN Reason Stop Dose Admin Acetaminophen 650 mg 08/18/24 06:20 08/18/24 06:41 Acetaminophen 325 Mg Tablet PO 650 mg Q6H PRN Administration Fever/Mild Pain (1-3) Carboprost Tromethamine 250 mcg 08/16/24 20:16 Carboprost 250 Mcg/Ml Ampul IM Q90M PRN Bleeding Diphenhydramine HCl 25 mg 08/18/24 15:27 Diphenhydramine 50 Mg/Ml Vial IV Q10M PRN Pruritis Ephedrine Sulfate 5 mg 08/18/24 13:00 08/18/24 13:31 Ephedrine 50 Mg/Ml Vial IV 5 mg Q1M PRN Administration Blood Pressure - Low Ephedrine Sulfate 10 mg 08/18/24 15:27 Ephedrine 50 Mg/Ml Vial IV Q5M PRN Blood pressure decrease more than 20% of baseline. Oxytocin/Lactated Ringer's 30 unit in 500 mls @ 200 mls/hr 08/16/24 20:16 Oxytocin Premix IV CONT PRN Bleeding Protocol Tranexamic Acid 1,000 mg/ 100 mls @ 600 mls/hr 08/16/24 20:16 Sodium Chloride IV NOW PRN Bleeding Oxytocin/Lactated Ringer's 30 unit in 500 mls @ 2 mls/hr 08/17/24 08:05 08/18/24 08:19 Oxytocin Premix IV 2 milliunit/min TITRATE JONATHON 2 mls/hr Administration Protocol 2 MILLIUNIT/MIN FENT 2MCG/ML BUPIV 0.125% EPI 200 mcg in 100 mls @ 6 mls/hr 08/18/24 15:30 Fentanyl/Bupiv/Ns 2mcg/Ml - 0.125% EPIDURAL CONT JONATHON Lidocaine HCl 20 ml 08/16/24 20:16 Lidocaine 1% 20 Ml INJ INTRA-OP PRN Post Delivery Methylergonovine Maleate 0.2 mg 08/16/24 20:16 Methylergonovine 0.2 Mg Tablet PO Q6HR PRN Heavy Bleeding Methylergonovine Maleate 0.2 mg 08/16/24 20:16 Methylergonovine 0.2 Mg/Ml Vial IM NOW PRN Bleeding Mineral Oil 30 ml 08/16/24 20:16 Mineral Oil 30 Ml Udc TOP PRN PRN Version Misoprostol 800 mcg 08/16/24 20:16 Misoprostol 200 Mcg Tablet VA NOW PRN Bleeding Misoprostol 400 mcg 08/16/24 20:16 Misoprostol 200 Mcg Tablet SL NOW PRN Bleeding Nalbuphine HCl 2.5 mg 08/18/24 15:27 Nalbuphine 20 Mg/Ml Ampul IV Q10M PRN Pruritis Naloxone HCl 0.2 mg 08/16/24 20:16 Naloxone 0.4 Mg/Ml Vial IV Q2MIN PRN Opiate Reversal Ondansetron HCl 4 mg 08/18/24 08:15 08/18/24 08:25 Ondansetron 4 Mg/2 Ml Inj IV 4 mg Q6HR PRN Administration Nausea And Vomiting Oxytocin 10 unit 08/16/24 20:16 Oxytocin 10 Unit/Ml Vial IM NOW PRN Bleeding Allergies: Allergies Allergy/AdvReac Type Severity Reaction Status Date / Time apple Allergy Intermediate Swelling Verified 08/10/24 13:22 of Lip/Tongue/Throat aguilar Allergy Intermediate Swelling Verified 08/10/24 13:22 of Lip/Tongue/Throat rifampin Allergy Intermediate Swelling Verified 08/10/24 13:22 of Lip/Tongue/Throat Procedure Insertion date: 08/18/24 Insertion time: 13:05 Prep/Local: 1% lidocaine (Chloraprep) Interspace: L3-4 Patient position: sitting Needle: 18 gauge Roland (27g 5% Pencan needle for intrathecal injection) Loss of resistance with: saline THAI at (cm): 7 Catheter placed at SKIN (cm): 15 Catheter in SPACE (cm): 8 Insertion: Yes CSF, No Blood, No Paresthesia with insertion, No Paresthesia with injection and No Test dose reaction Initial Medications TEST DOSE time: 13:07 TEST DOSE: 1.5% lidocaine with epinephrine 1:200k (mL): 3 BOLUS DOSE time: 13:08 BOLUS DOSE (mL): 2 BOLUS DOSE med: other (2 ml bolus with same as test dose; intrathecal injection at 13:05 with 0.5 ml of bupivacaine 0.75% in dextrose) Infusion INFUSION: 0.125% bupivacaine and with fentanyl 2 mcg/mL Initial rate (mL/hr): 8 Subsequent interventions: Pump started at 13:19. Pt required two 5-mg doses of ephedrine for relative hypotension. Rechecked pt about 13:50; pt stable and reports no pain. 19:27 - Called for bolus of epidural as pt is now 7 cm and uncomfortable with contractions. Pt able to move BLE. Bolused with lido 2% 10 ml and increased infusion pump to 10 ml/hr. 21:35 - Called for bolus of epidural as pt has become uncomfortable again. Able to move BLE. Pt says last bolus relieved her pain well; she lost mobility of her BLE after the bolus, but says it wore off quickly. Baby's tracing is becoming more flat and tachycardic. Dr. Enamorado has arrived to reassess pt. Bolus of fentanyl 100 mcg and lidocaine 2% given via epidural. 22:50 - has been called. Disconnected epidural infusion. Pt denies pain with contractions, able to move BLE. Post-procedure Anesthesia date START: 08/18/24 Anesthesia time START: 12:50 Anesthesia date END: 08/18/24 Anesthesia time END: 23:58 Post-procedure Anesthesia Assessment: Yes CV function: HR/BP stable, Yes Resp function: RR/sat/airway adequate, Yes Post-op hydration adequate, Yes Pain control adequate, Yes Nausea & vomiting absent, Yes Temperature > 36 C, Yes Mental status appropriate and No Anesthesia complications
[2024-08-18] MEDS: FENT 2MCG/ML BUPIV 0.125% EPI 200 MCG/100 ML PLAST..BAG 6 MCG EPIDURAL (18:53)
[2024-08-18] MEDS: hydrOXYzine HCL 25 MG TABLET PO (20:45)
[2024-08-18] MEDS: CEFAZOLIN 2 GM/100 ML PREMIX 100 ML IV (21:01)
--- NOTE | 2024-08-18 22:38 | PM.OBPNLAB ---
Date/Time Date Patient Seen: 08/18/24 Time Patient Seen: 22:38 Pain Control Pain control: epidural Pelvic Exam Dilation (cm): 9.5 Effacement (%): 100 station: -1 Amniotic membrane status: Ruptured Contractions Monitor mode: Internal Contraction frequency (min): 2 Contraction intensity: Strong/Firm Status status: Category ll Heart Rate Baseline: 175 Monitor Accelerations: Absent Monitor Decelerations: Absent Monitor Variability: Minimal Assessment and Plan Comments: 29yo at 37w0d here for IOL due to pre-eclampsia without severe features. GBS negative, Rh positive. Assumed care from Dr Rucker. Pt received cervidil the first night, then initiated on pitocin. AROM performed last night with clear fluid. On pitocin with IUPC in place. Pt advanced to cervical rim on the left side. ROM > 24hrs with rising heart rate, but no maternal fever or concerning vaginal discharge. Epidural in place and therefore cannot assess uterine tenderness. Did administer 2g of Ancef due to concerns for potentially developing infection, with plans to initiate ampicillin and gentamicin if additional symptom developed. FHT with minimal variability, little response to scalp stimulation. Did attempt to push past cervical rim, however head is wedged behind symphysis with little descent when pushing. Due to nonreassuring FHT and delivery not imminent, with station too high for forceps/vaccuum, will proceed with primary . Consent reviewed with the patient, her , and her mother. Risks including but not limited to bleeding/hemorrhage, infection, injury to other organs such as bowel/bladder, injury to fetus were discussed. The pt agrees to blood transfusion if medically necessary. All questions were answered. Consent was signed and placed in the chart.
[2024-08-18] MEDS: CITRIC ACID/SODIUM CITRATE 15 ML SOLUTION 30 ML PO (22:50)
--- NOTE | 2024-08-18 22:54 | PM.PREOP ---
Pre-operative Note Interval Note History & Physical reviewed/Exam performed by Physician: Yes Changes to H&P: No
[2024-08-18] MEDS: AZITHROMYCIN 500 MG in DEXTROSE 5% IN WATER 250 ML 250 MG IV (23:28)
[2024-08-18] MEDS: ACETAMINOPHEN IV 1,000 MG/100 ML VIAL 400 MG IV (23:40)
[2024-08-19 00:27] VITALS: BP 110/71; PULSE 112; RESP 13; O2SAT 95
--- NOTE | 2024-08-19 00:27 | P.OP_ITS ---
Operative Date/Time/Diagnoses Date of procedure: 08/18/24 Time of procedure: 23:30 Pre-op diagnosis: 37w1d gestation GBS negative Rh positive Pre-eclampsia without severe features Nonreassuring FHT Post-op diagnosis: same Procedure & Clinicians Procedure: Primary Same procedure as scheduled: Yes Indications: Nonreassuring FHT Surgeon: Roxanna Enamorado Knitted Goods Shaper: Anu Arboleda Anesthesia Type: Epidural Operative Notes Findings: Normal uterus, ovaries, and tubes Closure Type: primary Specimen(s): cord blood, cord pH and other (placental cultures) Intraoperative meds administered: Acetaminophen, Duramorph, Ketorolac and Pitocin Applied: Catheter Estimated Blood Loss (mL): 550 Procedure in detail: OPERATIVE COURSE: The patient was taken to the operating room where epidural anesthesia was rebolused. She was then prepared and draped in the normal sterile fashion in the dorsal supine position with a leftward tilt. Anesthesia was tested and found to be adequate. A Pfannensteil skin incision was then made with the scalpel and carried through to the underlying layer of fascia with the scalpel. The fascia was incised in the midline and the incision extended laterally with the Garcia scissors. The superior aspect of the fascial incision was then grasped with Ted clamps, elevated with the help of the certified surgical first assistant, and the underlying rectus muscles dissected off bluntly and sharply where needed. Attention was then turned to the inferior aspect of the incision which, in a similar fashion, was grasped, tented up with Ted clamps, and the rectus muscle dissected off bluntly and sharply with Garcia scissors. The rectus muscles were then in the midline, and the peritoneum was identified and entered with Metzenbaum scissors. The peritoneal incision was then extended with good visualization of the bladder. Retraction was provided by the certified surgical first assistant. The bladder blade was then inserted and the vesicouterine peritoneum identified, grasped with pick-ups and entered sharply with the Metzenbaum scissors. The incision was then extended laterally and the bladder flap created digitally. Significant edema of the bladder and uterine wall was noted. The bladder blade was then reinserted and the lower uterine segment incised in a transverse fashion with the scalpel, with the certified surgical first assistant providing suction. The uterine incision was then extended superolaterally by pulling superolaterally on both sides. The bladder blade was removed the 's head was flexed out of LOP position and delivered atraumatically, with fundal pressure by the certified surgical first assistant. The infant was noted to have a nuchal cord x 1 and body cord around his right leg x1. The nose and mouth were suctioned with bulb suction and the cord was clamped and cut after 1 minute. The was handed off to the waiting nursing staff. Cord blood was collected for Rh status. Cord gases were sent. The placenta was then delivered with gentle cord traction. The uterus was then cleared of all clots and debris. The uterine incision was repaired with O- Vicryl in a running, locked fashion. A second layer of the same suture was used for imbrication. 2-O Vicryl in a [id number] was used on the left side of the incision for excellent hemostasis. The gutters were cleared of all clots. Hysterotomy was investigated and found to be hemostatic. The bladder flap was repaired with 2-O Vicryl. The peritoneum was closed with 2-O Chromic. The fascia was reapproximated with O-Vicryl in a running fashion. Exparel was injected in the subcutaneous and fascial layers to assist with pain control. The subcutaneous tissue was reapproximated with 3-O Vicryl. The skin was closed with 4-O Monocryl. The certified surgical first assistant helped with retraction during closures. SPONGE AND NEEDLE COUNTS: Correct x3. DRESSING: Aquacel ANTICOAGULATION: SCDs applied prior to Surgery Preop antibiotics given (see MAR). The patient was taken to recovery room having tolerated procedure well. [place] Baby 1: Infant Gender: Male Presentation: vertex Position: Left Occiput Posterior Placental Delivery Description: Spontaneous Cord Vessel Description: 3 Vessels, Nuchal Cord and Around Body x1 score (1 min): 9 score (5 min): 9 weight: 6 lb 15.325 oz Post-operative Condition: stable Disposition: PACU Aftercare: routine postop
[2024-08-19 00:28] VITALS: BP 114/64; PULSE 112; RESP 14; TEMP 36.9; O2SAT 96
--- NOTE | 2024-08-19 00:31 | SUR.OPER ---
Supine on Padded OR bed, head on pillow, safety belt at thigh, arms secured on padded arm boards at <90 degrees abduction. Bump under right buttock. Legs uncrossed with pillow under knees, gel pad to heels, tape over blanket to lower legs.
[2024-08-19] MEDS: ONDANSETRON 4 MG/2 ML INJ IV (00:34)
[2024-08-19] MEDS: HYDROMORPHONE 1 MG INJ IV (00:34)
[2024-08-19] MEDS: OXYCODONE IR 5 MG TABLET PO (00:35)
[2024-08-19 00:37] VITALS: BP 119/63; PULSE 111; RESP 18; O2SAT 95
[2024-08-19 00:45] VITALS: BP 101/62; PULSE 111; RESP 12; TEMP 37.3; O2SAT 95
[2024-08-19 00:49] VITALS: BP 108/58; PULSE 111; RESP 19; O2SAT 95
[2024-08-19] MEDS: BUPIVACAINE LIPOSOME 266 MG/20 ML VIAL INJ (01:00)
[2024-08-19] MEDS: KETOROLAC 30 MG/ML VIAL IV ×3 (06:37→19:02)
[2024-08-19] MEDS: DOCUSATE 100 MG CAPSULE PO (09:00)
[2024-08-19 09:08] LABS: Add Manual Diff / Slide Review NO; Basophils Absolute Auto 100 /uL (0-100); Basophils Percent Auto 0.3 % (0-2); Eosinophils Absolute Auto 0 /uL (0-450); Hematocrit 28.1 % (36-46); Hemoglobin 9.5 g/dL (12.0-16.0); Lymphocytes Absolute Auto 1200 /uL (1100-4500); Lymphocytes Percent Auto 4.2 % (25-40); Mean Corpuscular HGB Conc 33.8 % (30-36); Mean Corpuscular Hemoglobin 30.7 PG (26-34); Mean Corpuscular Volume 90.8 fL (80-100); Monocytes Absolute Auto 2000 /uL (0-900); Monocytes Percent Auto 7.1 % (3-14); Neutrophils Absolute Auto 24300 /uL (1500-7000); Neutrophils Percent Auto 88.4 % (50-75); Platelet Count 189 X10^3/uL (150-400); Red Cell Distribution Width 13.9 % (11.6-14.8); White Blood Cell Count 27.5 X10^3/uL (4.5-11.0)
[2024-08-19] MEDS: PRENATAL VIT,CALC/IRON/FOLIC 1 TABLET 1 TAB PO (09:35)
[2024-08-19] MEDS: ACETAMINOPHEN 325 MG TABLET 650 MG PO ×3 (09:40→20:24)
[2024-08-20] MEDS: IBUPROFEN 600 MG TABLET PO ×2 (00:45→07:57)
[2024-08-20] MEDS: OXYCODONE IR 5 MG TABLET PO ×3 (01:34→11:48)
[2024-08-20] MEDS: ACETAMINOPHEN 325 MG TABLET 650 MG PO ×2 (04:30→10:25)
[2024-08-20] MEDS: PRENATAL VIT,CALC/IRON/FOLIC 1 TABLET 1 TAB PO (07:57)
[2024-08-20] MEDS: DOCUSATE 100 MG CAPSULE PO (07:57)
--- NOTE | 2024-08-25 21:35 | P.DS_ITS ---
Discharge Providers Provider Date of admission: 08/16/24 19:23 Discharge Date: 08/20/24 Primary care physician: Rachel STALLWORTH Provider Consults: 08/19/24 00:40 Consult to Dispatcher [employer]posal Routine Comment: Discharge provider: Anu Arboleda MD Summary Hospital Course Date Patient Seen: 08/20/24 Time Patient Seen: 11:00 Diagnoses: 37-1/7 weeks gestation Preeclampsia without severe features Cervical ripening with Cervidil Induction of labor with Pitocin Artificial rupture of membranes Epidural analgesia Intrauterine pressure catheter Nonreassuring heart rate tracing, remote from delivery Primary low-transverse section Hospital Course: Patient is a 29-year-old 2 para 1 who presented on August 16, 2024 for Cervidil for cervical ripening prior to induction of labor due to preeclampsia without severe features. She received 1 Cervidil overnight. On the morning of August 17, 2024 she was 3 cm/70%/-3 station. Artificial rupture of membranes was performed at 6:48 p.m.. She did not have much progression. The Pitocin was briefly stopped. On the morning of she was 4/70 and-3 station. An intrauterine pressure catheter was placed. At 3:30 p.m. she had an epidural. A February 07, 2038 she had progressed to 9+ cm/100% effaced/-1 station. There was maternal and tachycardia. There was minimal response to scalp stimulation. A cervical lip was attempted to be reduced with pushing, but did not budge as the head was wedged behind the pubic symphysis. The decision was made to proceed to primary low-transverse section, which she underwent without complication. Her blood pressures remained stable throughout the labor and period. None of them were in the severe range. She did not require treatment with magnesium sulfate or antihypertensives. On August 20, 2024, the patient was tolerating a diet, she was ambulating without assistance, her pain was well controlled, was going well, she was not experiencing any nausea or vomiting. And her bleeding was small. She was discharged home to follow-up at 1 week for an Aquacel dressing removal. Peripartum Data Delivery Method: Section Procedures: Cervidil cervical ripening Pitocin induction of labor Artificial rupture of membranes Epidural analgesia Intrauterine pressure catheter Primary low-transverse section complications: none Keavy 1: Gender: Male Disposition of : home Status at Discharge Cognitive/behavioral status at discharge: oriented Functional status at discharge: independent ambulation Overall status at discharge: patient is progressing back to baseline Time Spent with Patient Time attestation: Total time spent providing and/or coordinating discharge services: Time spent: Less than 30 minutes Objective Labs 08/19/24 08:55 08/16/24 19:56 Exam Vital Signs (past 8 hours): Oxygen Delivery Method Room Air Narrative Exam Narrative: Generally: Patient is sitting up in bed, holding , no acute distress Lungs: Clear to auscultation bilaterally Cardiovascular: Regular rate and rhythm Fundus: Firm at U -1 Incision: Clean dry and intact with Aquacel dressing Extremities: 1+ edema, negative Homans Discharge Plan Discharge Plan Patient Disposition: Home Discharge orders & Medications Prescriptions: New oxycodone 5 mg tablet 5 mg PO Q4H PRN (Reason: pain) Qty: 20 0RF Continued magnesium oxide 500 mg capsule 500 mg PO BID Qty: 60 0RF hydroxyzine HCl 25 mg tablet 25 mg PO BID PRN (Reason: itching) Qty: 20 0RF vit-ferrous sulfat-FA 27 mg iron- 0.8 mg tablet PO ketoconazole 2 % shampoo 1 applic topical 3XW Follow up/Referrals: Elizabeth Rucker MD [Physician] - (1 week Incision check w/ Dr. Rucker: Aug.28 @ 11:30am (please check in at 11:15am)) Visit Report/Discharge Packet Instructions: DI for Stand Alone Forms: Discharge: Care, Patient Portal/API, Stroke Signs & Symptoms Discharge Data Primary Care Provider: Rachel Montes
== END 2024-08-20 13:20 | disposition home or self-care (01) | DRG 788 ==
PROVIDERS: Family Medicine; Admitting Provider Obstetrics & Gynecology; Referring Provider Obstetrics & Gynecology; Visit Provider Obstetrics & Gynecology
PROC: (CPT 59514; principal; 2024-08-19 23:00)
DX: O14.04 Mild to moderate pre-eclampsia, complicating childbirth (principal); O76 Abnormality in fetal heart rate and rhythm complicating labor and delivery; Z3A.37 37 weeks gestation of pregnancy; Z37.0 Single live birth
CPT/HCPCS: 36415; 59050; 59200; 59510; 59514; 80053; 85025; 86850; 86900; 86901; 87070; 87075; 87077; 87186; 87205; A9270; C9290; G0379; J0134; J0690; J1100; J1170; J1885; J2274; J2405; J2590; J3010